=== PATIENT | female | born 1970 | race Caucasian/White ===

== ENCOUNTER 2020-03-03 06:32 | Day surgery (SDC) | payer OTHER, SELFPAY ==
[~2020-03-03] VITALS: Ht 172.7 cm; Wt 98.9 kg
[2020-03-03 07:04] LABS: HCG,QUAL RESULT NEGATIVE (NEGATIVE)
[2020-03-03] MEDS ORDERED: ONDANSETRON HCL 4 MG/2 ML VIAL IVP PRN (08:45)
[2020-03-03] MEDS ORDERED: LR 1,000 ML IV SCH (08:45)
[2020-03-03] MEDS ORDERED: HYDROmorphone 1 MG INJ. 1 MG/ML AMPUL IVP PRN ×2 (08:45)
[2020-03-03] MEDS ORDERED: METOCLOPRAMIDE HCL 10 MG/2 ML VIAL IVP PRN (08:45)
[2020-03-03] MEDS ORDERED: KETOROLAC TROMETHAMINE 30 MG VIAL IVP PRN ×3 (08:45)
[2020-03-03] MEDS ORDERED: HYDROcodone/ACETAMIN 5-325 MG TAB (NORCO/ VICODIN) PO PRN (08:45)
[2020-03-03] MEDS ORDERED: NALOXONE HCL 0.4 MG/ML AMP (NARCAN) IVP PRN (08:45)
[2020-03-03 09:40] VITALS: BP_SYST 155
== END 2020-03-03 10:30 | disposition home or self-care (01) ==
LOC: SDS 06:32 → SMU 06:32 → SDS 10:30
PROVIDERS: ATTEND Otolaryngology Plastic Surgery within the Head & Neck
DX: H65.492 Other chronic nonsuppurative otitis media, left ear (principal); J39.2 Other diseases of pharynx; E66.01 Morbid (severe) obesity due to excess calories; H69.80 Other specified disorders of Eustachian tube, unspecified ear; J30.9 Allergic rhinitis, unspecified; Z20.828 Contact with and (suspected) exposure to other viral communicable diseases; Z79.899 Other long term (current) drug therapy
CPT/HCPCS: 31237; 69436; 84703; 88305; 88341; 88342; A4649; L8699; U0003